=== PATIENT | female | born 1995 | race Caucasian/White ===

== ENCOUNTER 2025-03-17 08:54 | Emergency (ER) | payer OTHER ==
[~2025-03-17] VITALS: Ht 162.6 cm; Wt 61.8 kg
[2025-03-17] MEDS ORDERED: VENL150C43 PO (09:36)
[2025-03-17] MEDS ORDERED: NAPR-837 PO (10:17)
[2025-03-17] MEDS: NAPROXEN 250 MG TAB PO ONE (10:20)
[2025-03-17 10:27] VITALS: BP 100/60; TEMP 98.9; O2SAT 100
== END 2025-03-17 10:53 | disposition home or self-care (01) ==
LOC: M ED 08:54
DX: S83.92XA Sprain of unspecified site of left knee, initial encounter (principal); S80.02XA Contusion of left knee, initial encounter; W22.8XXA Striking against or struck by other objects, initial encounter; F41.9 Anxiety disorder, unspecified; Z88.0 Allergy status to penicillin; Z88.1 Allergy status to other antibiotic agents; Z79.899 Other long term (current) drug therapy; Z79.1 Long term (current) use of non-steroidal anti-inflammatories (NSAID); Y92.009 Unspecified place in unspecified non-institutional (private) residence as the place of occurrence of the external cause; Y93.89 Activity, other specified; Y99.9 Unspecified external cause status